=== PATIENT | female | born 1990 | race African-American/Black ===

== ENCOUNTER 2016-11-22 13:44 | Emergency (ER) | payer SELFPAY ==
[~2016-11-22] VITALS: Ht 160 cm; Wt 81.6 kg
[2016-11-22 13:44] VITALS: BP_SYST 110
[2016-11-22] MEDS ORDERED: ALBUTEROL SULFATE 0.083% 2.5 MG/3 ML VIAL.NEB INH ONE (14:00)
[2016-11-22] MEDS ORDERED: IPRATROPIUM BROM 0.5 MG/2.5 ML VIAL.NEB (ATROVENT) INH ONE (14:00)
[2016-11-22] MEDS ORDERED: DEXAMETHASONE SOD PHOSPHATE 4 MG/ML VIAL INH ONE (14:00)
[2016-11-22] MEDS ORDERED: DEXAMETHASONE SOD PHOSPHATE 10 MG/ML VIAL IM ONE (14:00)
== END 2016-11-22 16:00 | disposition home or self-care (01) ==
LOC: SED 13:44
DX: J45.901 Unspecified asthma with (acute) exacerbation (principal)
CPT/HCPCS: 94640; 96372; 99283; J1100